=== PATIENT | female | born 2000 | race Two or more races ===

== ENCOUNTER 2022-06-20 00:15 | Emergency (ER) | payer OTHER ==
[~2022-06-20] VITALS: Ht 154.9 cm; Wt 58.1 kg
[2022-06-20] MEDS ORDERED: DOLOGESIC-DF 51 EACH PO (06:56)
[2022-06-20] MEDS ORDERED: PYRIDIUM DS200 MG PO (06:56)
[2022-06-20] MEDS ORDERED: CEPHALEXIN500 MG PO (06:56)
== END 2022-06-20 07:13 ==
LOC: ER 00:15
DX: N39.0 Urinary tract infection, site not specified (principal); Z88.6 Allergy status to analgesic agent; Z88.8 Allergy status to other drugs, medicaments and biological substances